=== PATIENT | male | born 1980 | race Caucasian/White ===

== ENCOUNTER 2023-05-10 16:07 | Emergency (ER) | payer BC, SELFPAY ==
[2023-05-10 16:10] VITALS: BP 210/130; PULSE 83; TEMP 36.9; O2SAT 98; BMI 33.1
--- NOTE | 2023-05-10 16:20 | ECG_ITS ---
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
--- NOTE | 2023-05-10 16:20 | XR_ITS ---
The [address] [address] Patient Name: YARELY SPAULDING MRN: [id number] date: 1980 Sex: M Assigned Patient Location: ER Current Patient Location: ED.MAIN Accession/Order Number: [id number] Exam Date: 05/10/2023 16:50 Report Date: 05/10/2023 17:07 At the request of: EVELYN KRAUS Procedure: XR chest 1V EXAM: XR chest 1V at 1645 hours HISTORY: Hypertension COMPARISON: None. TECHNIQUE: AP upright portable chest x-ray FINDINGS: The heart is mildly enlarged with some prominence of the central pulmonary vasculature. Slight haziness over the left lower lung is probably related to overlying soft tissues. No acute infiltrate, effusion or pneumothorax is readily identified. The osseous structures are grossly intact. XR/XR chest 1V IMPRESSION: Mild cardiac enlargement without overt cardiac decompensation. No discrete infiltrate is identified. Direct comparison with a previous study may be helpful in determining the chronicity of these findings. Electronically authenticated by: AILYN LAZO Date: 05/10/2023 17:07
--- NOTE | 2023-05-10 16:22 | ED.GENADUL1 ---
HPI HPI - General Adult General Chief complaint: Recheck/Abnormal Lab/Rx Stated complaint: HIGH BP Time Seen by Provider: 05/10/23 16:11 Source: patient Mode of arrival: walk-in Limitations: no limitations History of Present Illness HPI narrative: Is a 42-year-old male with no significant medical history who presents to the emergency department for elevated blood pressure reading at home. He states that he felt not quite right and took a blood pressure on his mother's blood pressure cuff that was elevated. He has no history of hypertension, he takes no medications daily. He denies any significant headaches, visual changes, chest pain, shortness of breath, peripheral paresthesias, vomiting. He states he has had mild congestion and was taking [id number] cough medication a few times but does not believe that it had any decongestants or Sudafed. He does not smoke. He has had no chest pain or shortness of breath. He denies the symptoms previously. Related Data Previous Rx's ?Medication ?Instructions ?Recorded levothyroxine 125 mcg tablet 125 mcg PO DAILY #14 tabs 05/10/23 (Synthroid) lisinopril 10 mg tablet 10 mg PO DAILY #14 tabs 05/10/23 Allergies Allergy/AdvReac Type Severity Reaction Status Date / Time No Known Drug Allergies Allergy Verified 05/10/23 16:10 Opioid HPI Opioid Management Most Recent Opioid Data: Last Pain Scale 2 05/10/23 16:10 Review of Systems ROS Constitutional Denies: fever or chills Eyes Denies: change in vision Ears, nose, mouth, and throat Reports: nasal congestion; Denies: throat pain Cardiovascular Denies: chest pain Respiratory Denies: shortness of breath or cough Gastrointestinal Denies: nausea or vomiting Musculoskeletal Denies: back pain Integumentary/Breast Denies: rash Neurological Denies: headache Endocrine Denies: excessive urination Hematologic/Lymphatic Denies: easy bruising or easy bleeding Exam Narrative Exam Narrative: Gen.: Awake, alert, in no distress Head: Normocephalic, atraumatic ENT: Moist mucous membranes Respiratory: No respiratory distress, lungs clear bilaterally Cardio: Regular rate and rhythm Extremities: Moves extremities equally Psych: Normal mood and affect Neuro: No focal neuro deficit Skin: Warm, dry, intact Constitutional Vital Signs, click to edit/add: Last Vital Signs Temp 98.5 F 05/10/23 16:10 Pulse 83 05/10/23 16:10 Resp 18 05/10/23 16:10 BP 182/141 H 05/10/23 16:41 Pulse Ox 99 05/10/23 16:50 O2 Del Method Room Air 05/10/23 16:50 Course Vital Signs Vital signs: Vital Signs Temperature 98.5 F 05/10/23 16:10 Pulse Rate 83 05/10/23 16:10 Respiratory Rate 18 05/10/23 16:10 Blood Pressure 210/130 H 05/10/23 16:10 Pulse Oximetry 98 05/10/23 16:10 Oxygen Delivery Method Room Air 05/10/23 16:10 Temperature 98.5 F 05/10/23 16:10 Pulse Rate 83 05/10/23 16:10 Respiratory Rate 18 05/10/23 16:10 Blood Pressure 182/141 H 05/10/23 16:41 Pulse Oximetry 99 05/10/23 16:50 Oxygen Delivery Method Room Air 05/10/23 16:50 Medical Decision Making MDM Narrative Medical decision making narrative: Blood pressure was significantly elevated initially, although the patient had no significant focal medical complaints. He does have EKG changes with T wave inversion in the inferior leads but no active chest pain, ST elevation and has normal troponin. BNP is also normal. Chest x-ray with minimal cardiomegaly, TSH is significantly elevated and free T3 and free T4 were added. Patient started on Synthroid, lisinopril for home. Patient was instructed to check his blood pressure only when he has symptoms, return to the emergency department for any critically elevated blood pressures or significant headache, chest pain or other change in symptoms. He is well-hydrated and nontoxic-appearing at time of discharge. He has an appointment in 2 weeks with her primary care provider. He is given medication until that time with a work note for activity as tolerated.Patient was treated with IV labetalol and Vasotec in the ER and repeat manual blood pressure is 168/110. Medical Records Medical records reviewed: Yes I reviewed the patient's medical records Lab Data Lab results reviewed: Yes I reviewed the patient's lab results Labs: Lab Results 05/10/23 Range/Units 16:20 WBC 5.8 (4.0-11.0) 10^3/uL RBC 3.58 L (4.70-6.10) 10^6/uL Hgb 11.7 L (14.0-18.0) g/dL Hct 34.9 L (42.0-54.0) % MCV 97.5 H (80.0-94.0) fL MCH 32.7 (25.9-34.0) pg MCHC 33.5 (29.9-35.2) g/dL RDW 13.6 (11.0-15.0) % Plt Count 232 (150-450) 10^3/uL MPV 10.2 (9.5-13.5) fL Neut % (Auto) 59.8 (43.0-75.0) % Lymph % (Auto) 29.2 (20.5-60.0) % [place] % (Auto) 8.0 (1.7-12.0) % Eos % (Auto) 1.4 (0.9-7.0) % Baso % (Auto) 1.4 (0.2-2.0) % Neut # (Auto) 3.5 (1.4-6.5) 10^3/uL Lymph # (Auto) 1.7 (1.2-3.8) 10^3/uL [place] # (Auto) 0.5 (0.3-0.8) 10^3/uL Eos # (Auto) 0.1 (0.0-0.7) 10^3/uL Baso # (Auto) 0.1 (0.0-0.1) 10^3/uL Abs Immat Gran (auto) 0.01 (0.00-0.03) 10^3/uL Imm/Tot Granulo (auto) 0.2 (0.0-0.5) % PT 10.1 (9.0-11.6) sec INR 0.95 Sodium 138 (136-145) mmol/L Potassium 3.8 (3.5-5.1) mmol/L Chloride 100 (98-107) mmol/L Carbon Dioxide 30.1 (21.0-32.0) mmol/L Anion Gap 11.7 BUN 19.0 H (7.0-18.0) mg/dL Creatinine 1.44 H (0.70-1.30) mg/dL Est GFR ( Amer) >60 (>=60) Est GFR (Non-Af Amer) 54 L (>=60) BUN/Creatinine Ratio 13.2 Glucose 92 (74-106) mg/dL Calcium 9.2 (8.5-10.1) mg/dL Total Bilirubin 0.4 (0.2-1.0) mg/dL AST 53 H (15-37) U/L ALT 64 H (16-63) U/L Alkaline Phosphatase 65 (46-116) U/L Troponin I High Sens 17.6 (4.0-76.1) pg/mL NT-Pro-B Natriuret Pep 366.0 (<=450.0) pg/mL Total Protein 7.9 (6.4-8.2) g/dL Albumin 4.8 (3.4-5.0) g/dL Globulin 3.1 g/dL Albumin/Globulin Ratio 1.5 TSH 70.335 H (0.358-3.740) uIU/mL Imaging Data Chest x-ray: Attestation: I have reviewed the pertinent imaging results. Radiologist's impression: ITS Impressions Chest X-Ray 05/10/23 16:20 IMPRESSION: Mild cardiac enlargement without overt cardiac decompensation. No discrete infiltrate is identified. Direct comparison with a previous study may be helpful in determining the chronicity of these findings. Electronically authenticated by: AILYN LAZO Date: 05/10/2023 17:07 ECG Data Attestation: I personally reviewed and interpreted this ECG as follows: (Normal sinus rhythm at a rate of 87, T wave inversion in the inferior leads with no acute ST elevation or ectopy. EKG reviewed by attending physician. There are no previous EKGs for comparison.) Discharge Plan Discharge Stand Alone Forms: Portal Instructions Chief Complaint: Recheck/Abnormal Lab/Rx Clinical Impression: Elevated TSH, Hypertension Patient Disposition: Home, Self-Care Time of Disposition Decision: 17:35 Condition: Good Prescriptions / Home Meds: New lisinopril 10 mg tablet 10 mg PO DAILY Qty: 14 0RF levothyroxine [Synthroid] 125 mcg tablet 125 mcg PO DAILY Qty: 14 0RF Print Language: German Instructions: Thyroid Supplement (By mouth), Hypertension (ED) Referrals: VIOLETA SHANKS [Primary Care Provider] - 05/24/23
[2023-05-10 16:38] LABS: Basophils Absolute Auto 0.1 10^3/uL (0.0-0.1); Basophils Percent Auto 1.4 % (0.2-2.0); Eosinophils Absolute Auto 0.1 10^3/uL (0.0-0.7); Eosinophils Percent Auto 1.4 % (0.9-7.0); Hematocrit 34.9 % (42.0-54.0); Hemoglobin 11.7 g/dL (14.0-18.0); Immature Granulocytes Abs Auto 0.01 10^3/uL (0.00-0.03); Immature Granulocytes Pct Auto 0.2 % (0.0-0.5); Lymphocytes Absolute Auto 1.7 10^3/uL (1.2-3.8); Lymphocytes Percent Auto 29.2 % (20.5-60.0); Mean Corpuscular HGB Conc 33.5 g/dL (29.9-35.2); Mean Corpuscular Hemoglobin 32.7 pg (25.9-34.0); Mean Corpuscular Volume 97.5 fL (80.0-94.0); Mean Platelet Volume 10.2 fL (9.5-13.5); Monocytes Absolute Auto 0.5 10^3/uL (0.3-0.8); Neutrophils Absolute Auto 3.5 10^3/uL (1.4-6.5); Neutrophils Percent Auto 59.8 % (43.0-75.0); Platelet Count 232 10^3/uL (150-450); Red Blood Count 3.58 10^6/uL (4.70-6.10); Red Cell Distribution Width 13.6 % (11.0-15.0); White Blood Count 5.8 10^3/uL (4.0-11.0)
[2023-05-10] MEDS: LABETALOL HCL 20 MG/4 ML SYRINGE 10 MG IVP (16:40)
[2023-05-10 16:41] VITALS: BP 182/141
[2023-05-10] MEDS: ENALAPRILAT DIHYDRATE 1.25 MG/ML VIAL IV (16:41)
[2023-05-10 16:50] VITALS: O2SAT 99
[2023-05-10 16:52] LABS: INR 0.95; Prothrombin Time 10.1 sec (9.0-11.6)
[2023-05-10 17:02] LABS: Alanine Aminotransferase 64 U/L (16-63); Albumin Globulin Ratio 1.5; Albumin Level 4.8 g/dL (3.4-5.0); Alkaline Phosphatase 65 U/L (46-116); Anion Gap 11.7; Aspartate Amino Transferase 53 U/L (15-37); BUN Creatinine Ratio 13.2; Bilirubin Total 0.4 mg/dL (0.2-1.0); Calcium 9.2 mg/dL (8.5-10.1); Carbon Dioxide 30.1 mmol/L (21.0-32.0); Chloride 100 mmol/L (98-107); Estimated GFR (African America >60 (>=60); Estimated GFR (Non-African Ame 54 (>=60); Globulin 3.1 g/dL; Glucose 92 mg/dL (74-106); Potassium 3.8 mmol/L (3.5-5.1); Sodium 138 mmol/L (136-145); Thyroid Stimulating Hormone 70.335 uIU/mL (0.358-3.740); Total Protein 7.9 g/dL (6.4-8.2); Troponin I High Sensitivity 17.6 pg/mL (4.0-76.1)
[2023-05-10 17:38] VITALS: BP 168/110
[2023-05-10 17:40] LABS: Free T4 0.23 ng/dL (0.76-1.46)
[2023-05-10 17:47] LABS: Free T3 0.64 pg/mL (2.18-3.98)
== END 2023-05-10 17:56 | disposition home or self-care (01) ==
PROVIDERS: Physician Assistant; Emergency Provider Emergency Medicine Emergency Medical Services; PCP Family Medicine
DX: I10 Essential (primary) hypertension (principal); R94.6 Abnormal results of thyroid function studies; Z79.899 Other long term (current) drug therapy; Z79.890 Hormone replacement therapy
CPT/HCPCS: 36415; 71045; 80053; 83880; 84439; 84443; 84481; 84484; 85025; 85610; 93005; 96374; 96375; 99285